=== PATIENT | male | born 1990 | race Caucasian/White ===

== ENCOUNTER 2022-05-06 11:04 | Emergency (ER) | payer OTHER ==
[~2022-05-06] VITALS: Ht 172.7 cm; Wt 77.1 kg
[~2022-05-06 11:04] MED LIST: ASPI325 PO; CRUTCH3 USE; HYDACE5 PO; OXYACE7.5T PO; RXHYDACE PO; RXTRAM50 PO; SULTRIDS PO; TRAM50 PO
== END 2022-05-06 12:52 | disposition short-term general hospital (02) ==
LOC: ER 11:04
DX: S02.832A Fracture of medial orbital wall, left side, initial encounter for closed fracture (principal); S02.32XA Fracture of orbital floor, left side, initial encounter for closed fracture; S05.52XA Penetrating wound with foreign body of left eyeball, initial encounter; Z88.0 Allergy status to penicillin; Z79.899 Other long term (current) drug therapy; Z79.82 Long term (current) use of aspirin; W34.09XA Accidental discharge from other specified firearms, initial encounter
CPT/HCPCS: 70450; 70486; 71045; 90714; J0690; J1956; J2405